=== PATIENT | male | born 1955 | race Caucasian/White ===

== ENCOUNTER 2020-04-18 13:37 | Emergency (ER) | payer MEDICARE, OTHER, SELFPAY ==
--- NOTE | ~2020-04-18 | CT_ITS ---
EXAMINATION: CT brain wo con INDICATION: Head injury COMPARISON: None TECHNIQUE: Standard unenhanced head CT. The dose-length product (DLP) was 605.33 mGy-cm. The mA was a djusted according to patient size. Iterative reconstruction technique was employed. FINDINGS: There is no acute intraparenchymal hemorrhage. No evidence of mass lesion. No evidence of a cute infarction. There is mild periventricular and subcortical hypodensity probably related to small vessel ischemic disease. There is mild prominence of the sulci and ventricles related to cerebral atr ophy. Intracranial calcified cerebral atherosclerosis is noted. There are no extra-axial collections. There is no mass effect or midline shift. The orbits and soft tissues are unremarkable. The visuali zed sinuses and mastoid air cells are well aerated. IMPRESSION: 1. No acute intracranial abnormality. 2. Age related findings. Reviewed, dictated and finalized at location A.
--- NOTE | ~2020-04-18 | CT_ITS ---
EXAMINATION: CT cervical spine wo con DATE: 04/18/2020 18:34 INDICATION: Neck pain TECHNIQUE: Computed tomography (CT) of the cervical spine was performed without intravenous contrast. The dose-length product (DLP) was 448.05 mGy-cm. Automated exposure control and iterative reconstruc tion technique were employed. COMPARISON: None FINDINGS: There is no fracture. There is 1 mm retrolisthesis of C5 on C6. The vertebral body heights are normal. There is mild loss of intervertebral disc space height at C5-6. The odontoid is intact. S mall degenerative osteophytes project from the anterior endplates of multiple vertebral bodies. There is mild facet and uncovertebral joint osteoarthritis at multiple levels in the cervical spine. IMPRESSION: 1. Mild cervical spondylosis without acute findings. Reviewed, dictated and finalized at location A.
--- NOTE | ~2020-04-18 | CT_ITS ---
EXAMINATION: CT abd pelvis lumbar w con INDICATION: Abdominal and pelvic pain after fall TECHNIQUE: Computed tomographic images of the abdomen, pelvis, and lumbar spine were obtained after t he administration of 100 cc of Omnipaque 350 intravenous contrast. The dose-length product (DLP) was 1589.79 mGy-cm. Automated exposure control and iterative reconstruction technique were employed. COMPARISON: None FINDINGS: ABDOMEN/PELVIS: Minimal dependent atelectasis is present in the lung bases. The heart size is normal. There is a trace right pleural effusion. Subtle low attenuation of the liver adjacent to the ligamen tyler teres likely reflects focal steatosis, a common location. The liver is otherwise unremarkable. Th e spleen, pancreas, gallbladder, and adrenal glands are normal. The kidneys are unremarkable. There i s slight enlargement of the right iliopsoas muscle compared to the left. A moderate amount of right-s ided retroperitoneal fluid is also seen adjacent to the right iliopsoas muscle. Fluid also tracks int o a small right inguinal hernia and into the pelvis. There is calcified atherosclerosis of the aorta and many of the other arteries. No pathologically enlarged abdominal or pelvic lymph nodes are identi fied. There is no free intraperitoneal gas or evidence of bowel obstruction. Colonic diverticulosis i s present without evidence of diverticulitis. A nondisplaced right 12th rib fracture is noted. LUMBAR SPINE: There is no fracture, dislocation, or subluxation. Vertebral body heights and alignment are normal. There is mild loss of intervertebral disc space height at L5-S1 with a mild posterior di sc bulge. Tiny sclerotic foci in the sacrum likely represent bone islands. There is mild facet osteoa rthritis of the lower lumbar spine. Small degenerative osteophytes project from the anterior endplate s of multiple vertebral bodies. IMPRESSION: 1. Mild asymmetric enlargement of the right iliopsoas muscle compared to the left with surrounding st randing of the retroperitoneal fat, consistent with muscular injury. 2. Mild lumbar spondylosis without acute findings of the lumbar spine. 3. Trace right pleural effusion. 4. Nondisplaced right 12th rib fracture. Reviewed, dictated and finalized at location A. IMPRESSION: 1. Mild asymmetric enlargement of the right iliopsoas muscle compared to the le ft with surrounding stranding of the retroperitoneal fat, consistent with muscu lar injury. 2. Mild lumbar spondylosis without acute findings of the lumbar spine. 3. Trace right pleural effusion. 4. Nondisplaced right 12th rib fracture.
[2020-04-18 13:55] VITALS: BP 113/54; PULSE 91; RESP 16; TEMP 36.3; O2SAT 98
[2020-04-18 14:17] LABS: Basophils Percent Auto 0.2 % (0.2-1.2); Eosinophils Percent Auto 0.2 % (0-4.4); Hematocrit 40.7 % (42.0-52.0); Immature Granulocyte Absolute 0.08 K/mm3 (0.00-0.031); Immature Granulocyte Percent A 0.6 % (0-0.5); Lymphocytes Absolute Auto 1.02 K/mm3 (0.9-3.2); Mean Corpuscular HGB Conc 34.4 g/dl (32-36); Mean Corpuscular Hemoglobin 32.9 pg (26-34); Mean Corpuscular Volume 95.5 fl (80-100); Mean Platelet Volume 10.4 fl (7.4-10.4); Monocytes Absolute Auto 1.4 K/mm3 (0.1-0.6); Monocytes Percent Auto 11.3 % (2.6-8.5); Neutrophils Absolute Auto 10.2 K/mm3 (1.3-6.7); Neutrophils Percent Auto 79.7 % (45.5-73.1); Platelet Count Result 251 k/mm3 (150-375); Red Blood Count 4.26 M/mm3 (4.6-6.20); Red Cell Distribution Width 13.3 % (11.5-14.5); White Blood Count 12.8 K/mm3 (4.5-10.0)
[2020-04-18 14:34] LABS: Alanine Aminotransferase 15 U/L (4-50); Albumin Level 4.1 g/dL (3.5-5.1); Alkaline Phosphatase 62 U/L (38-126); Aspartate Amino Transferase 17 U/L (17-59); Bilirubin,Total 0.9 mg/dL (0.2-1.3); Blood Urea Nitrogen 18 mg/dL (9-20); Calcium 9.1 mg/dL (8.4-10.2); Carbon Dioxide 23 mmol/L (22-30); Chloride 101 mmol/L (98-107); Estimated CRCL calculation 79 ml/min; Estimated Glomerular Filt Rate > 60; Glucose 260 mg/dL (75-110); Lipase 81 U/L (23-300); Sodium 134 mmol/L (137-145)
--- NOTE | 2020-04-18 16:55 | ED.BACK ---
HPI - Back Pain/Injury General Chief Complaint: Back Pain/Injury Stated Complaint: FALL Time Seen by Provider: 04/18/20 16:39 Source: patient Mode of arrival: ambulatory Limitations: no limitations History of Present Illness HPI Narrative: This patient is a 64 year old male with multiple medical problems which includes DVTs on xarelto who presents for evaluation of fall out of bed. He states on Saturday he must have rolled out of bed. He woke up on floor with redness and sores to his face. He reports there were teeth alcantara on the night stand. He has had progressively worsening pain from his neck down to his lower back . He also had abdominal pain and distension. He has been taking tramadol for pain his pain. Related Data Allergies Allergy/AdvReac Type Severity Reaction Status Date / Time Penicillins Allergy Unknown Verified 09/09/19 15:35 Review of Systems Review of Systems: All systems reviewed & are unremarkable except as noted in HPI and below Constitutional: Constitutional: Denies chills and Denies fever(s) Gastrointestinal: Gastrointestinal: Reports abdominal pain and Reports nausea Genitourinary: Genitourinary: Reports no additional male genitourinary complaints Musculoskeletal: Musculoskeletal: Reports back pain and Reports myalgias Neurologic: Reports headache(s) PMFSH Past Medical History Medical History (Updated 04/18/20 @ 19:47 by Cheryl Dent MD) Diabetes mellitus Rheumatoid arthritis Surgical History Surgical History (Updated 04/18/20 @ 19:43 by Cheryl Dent MD) No pertinent past surgical history Social History Social History (Updated 04/18/20 @ 19:43 by Cheryl Dent MD) Smoking status: Never smoker Gender identity (if verbalized by the patient): Male Exam Narrative: Exam Narrative: GENERAL: Well-appearing, well-nourished, HEAD: Normocephalic, atraumatic EYES: PERRLA and EOMI, conjunctiva clear without discharge EARS: TM's clear bilaterally without erythema or dullness NOSE: Nares clear, no rhinorrhea or epistaxis abrasion to nasal bridge THROAT:Mucous membranes moist, Oropharynx normal without erythema, exudate, peritonsillar swelling or fluctuance NECK: Supple, without lymphadenopathy or mass RESPIRATORY: No respiratory distress, Airway patent, Respirations non-labored, Clear to auscultation without rales, rhonchi or wheeze HEART: Regular rate and rhythm. No murmur heard. Normal peripheral pulses. ABDOMEN: Soft, Diffuse tenderness, nondistended, normal active bowel sounds. No masses. No rebound or guarding, No organomegaly. EXTREMITIES: No edema, normal strength with full range of motion. abrasion to right knee SKIN: Warm, dry, normal color without rash NEURO: Alert and oriented x3. CN 2-12 grossly intact. No focal deficits. PSYCH: Normal mood and affect. Back/Spine/Pelvis: Other: TTP L2 Course Reevaluation(s) Reevaluation #1: I discussed with patient and family CT findings of rib fracture and muscle tear. Radiologist did not see hyperdense fluid to suggest bleedinging. Date: 04/18/20 Time: 19:44 Vital Signs Vital signs: Vital Signs Temperature 97.4 F L 04/18/20 13:55 Pulse Rate 91 04/18/20 13:55 Respiratory Rate 16 04/18/20 13:55 Blood Pressure 113/54 L 04/18/20 13:55 Pulse Oximetry 98 04/18/20 13:55 Temperature 97.4 F L 04/18/20 13:55 Pulse Rate 92 04/18/20 18:41 Respiratory Rate 20 04/18/20 18:41 Blood Pressure 116/60 04/18/20 18:41 Pulse Oximetry 96 04/18/20 17:18 MDM - Back Pain/Injury Lab Data Attestation: I reviewed the patient's lab results. Result diagrams: 04/18/20 14:08 04/18/20 14:08 Labs: Lab Results 04/18/20 04/18/20 04/18/20 Range/Units 14:08 14:08 17:24 WBC 12.8 H (4.5-10.0) K/mm3 RBC 4.26 L (4.6-6.20) M/mm3 Hgb 14.0 (14.0-18.0) g/dL Hct 40.7 L (42.0-52.0) % MCV 95.5 (80-100) fl MCH 32.9 (26-34) pg MCHC 34
[2020-04-18] MEDS: ONDANSETRON INJ 4 MG/2 ML VIAL IV PUSH (17:16)
[2020-04-18 17:18] VITALS: BP 116/57; PULSE 83; RESP 17; O2SAT 96
[2020-04-18 17:39] LABS: INR 1.7; Prothrombin Time 19.8 Seconds (11.1-14.7)
[2020-04-18 17:40] LABS: Partial Thromboplastin Time 38.1 SECONDS (22.3-36.8)
[2020-04-18 18:40] VITALS: BP 101/57; PULSE 78; RESP 20
[2020-04-18 18:41] VITALS: BP 116/60; PULSE 92; RESP 20
--- NOTE | 2020-04-18 21:10 | PC.NURSE ---
2104- This RN into discharge the patient. Multiple attempts at bp showed systolic pressure in the 80's. Pt denies any symptoms. CHRISTIANE Peguero notified, fluids ordered
[2020-04-18] MEDS: SODIUM CHLORIDE 0.9% IV 1,000 ML 999 ML IV CONT (21:12)
[2020-04-18 21:14] VITALS: BP 111/64; PULSE 78; RESP 18; O2SAT 99
--- NOTE | 2020-04-27 10:53 | PC.NURSE ---
late entry- patient recieved 200 cc ns and sbp improved to 111. iv fluids dcd and patient discharged to home at 2113
[2020-04-27 10:55] VITALS: BP 111/60; PULSE 78; RESP 18; O2SAT 99
== END 2020-04-18 21:14 | disposition home or self-care (01) ==
PROVIDERS: Emergency Medicine; Emergency Provider General Practice; PCP Physician Assistant
DX: S22.31XA Fracture of one rib, right side, initial encounter for closed fracture (principal); S76.911A Strain of unspecified muscles, fascia and tendons at thigh level, right thigh, initial encounter; Z86.718 Personal history of other venous thrombosis and embolism; Z79.01 Long term (current) use of anticoagulants; E11.9 Type 2 diabetes mellitus without complications; M06.9 Rheumatoid arthritis, unspecified; M47.812 Spondylosis without myelopathy or radiculopathy, cervical region; M47.816 Spondylosis without myelopathy or radiculopathy, lumbar region; W06.XXXA Fall from bed, initial encounter
CPT/HCPCS: 36415; 70450; 72125; 72132; 74177; 80053; 83690; 85025; 85610; 85730; 96365; 96375; 99284; J0131; J1170; J2405; J7030; Q9967

== ENCOUNTER 2020-12-22 17:44 | Observation (INO) | payer MEDICARE, SELFPAY ==
[2020-12-22] VITALS (12 sets, daily range): BP systolic 103–148; BP diastolic 52–82; PULSE 65–95; RESP 16–24; TEMP 35.6–36.6; O2SAT 95–100; BMI 25.8
--- NOTE | ~2020-12-22 | XR_ITS ---
EXAMINATION: XR foot LT 2V INDICATION: Left foot strain, fifth metatarsal pain/wound TECHNIQUE: Two views of left foot are obtained. COMPARISON: None available FINDINGS: There is a well-corticated osseous fragment at the lateral base of the fifth metatarsal whi ch has the appearance of a prior fracture with nonunion. Soft tissue swelling is seen lateral to the base and proximal shaft of the fifth metatarsal. No acute fracture is identified. There is mild osteo arthritis of the ankle, midfoot, and several interphalangeal joints. Dorsal and plantar calcaneal ent hesophytes are noted. IMPRESSION: 1. Soft tissue swelling lateral to the base and proximal shaft of the fifth metatarsal without eviden ce of acute underlying osseous abnormality. 2. 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 Reviewed, dictated and finalized at location A. NOPATHOLOGIST IMPRESSION: 1. Soft tissue swelling lateral to the base and proximal shaft of the fifth met atarsal without evidence of acute underlying osseous abnormality. 2. 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
--- NOTE | ~2020-12-22 | XR_ITS ---
EXAMINATION: XR chest 1V portable INDICATION: History of hypertension and anemia TECHNIQUE: Portable AP chest at 2052 hours COMPARISON: 02/14/2018 FINDINGS: The lungs are free of acute opacities. There is no pleural effusion or pneumothorax. The ca rdiomediastinal silhouette is normal. A suture anchor is noted in the left humeral head. IMPRESSION: 1. No acute cardiopulmonary abnormality. Reviewed, dictated and finalized at location A. [employer]TER GAME TESTER
--- NOTE | 2020-12-22 18:10 | ED.GENADULT ---
HPI - General Adult General Chief complaint: Recheck/Abnormal Lab/Rx Stated complaint: abn lab Time Seen by Provider: 12/22/20 17:58 Source: patient Mode of arrival: ambulatory Limitations: no limitations History of Present Illness HPI narrative: Patient is a 65-year-old male sent here by his primary care physician due to low hemoglobin. Patient was told by his doctor that he has severe anemia and needs to go to the emergency room soon as possible. Patient states that he has noticed shortness of breath on exertion that started proxy 1 month ago. Patient denies any hemoptysis, hematemesis, melena, hematochezia. Patient denies any chest pain, abdominal pain, nausea, vomiting, fever or chills. Related Data Home Medications Medication Instructions Recorded Confirmed Antacid 12/22/20 12/22/20 Caltrate 600 plus D 12/22/20 apremilast [Otezla] mg PO 12/22/20 duloxetine mg PO 12/22/20 duloxetine mg PO 12/22/20 enalapril maleate 12/22/20 furosemide 12/22/20 12/22/20 glipizide mg 12/22/20 leflunomide mg 12/22/20 metformin mg 12/22/20 secukinumab [Cosentyx Pen (2 Pens)] mg SUBCUT 12/22/20 senna 12/22/20 sitagliptin 12/22/20 tramadol mg 12/22/20 Allergies Allergy/AdvReac Type Severity Reaction Status Date / Time Penicillins Allergy Unknown Verified 12/22/20 18:50 Review of Systems Review of Systems: All systems reviewed & are unremarkable except as noted in HPI and below Constitutional: Constitutional: Denies body ache(s), Denies chills, Denies excessive sweating, Denies fatigue, Denies fever(s), Denies headache(s), Denies lethargy, Denies malaise, Denies weakness and Denies weight loss Eyes: Eyes: Denies blurry vision, Denies change in vision and Denies loss of vision ENT: Denies dizziness, Denies ear discharge, Denies headache(s), Denies lip swelling, Denies epistaxis, Denies nasal congestion, Denies neck pain, Denies throat swelling and Denies tongue swelling Cardiovascular: Cardiovascular: Denies chest pain, Denies chest pain at rest, Denies chest pain with activity, Denies diaphoresis, Denies rapid heart rate, Denies edema, Denies irregular heart rhythm, Denies lightheadedness, Denies palpitations, Denies dyspnea and Denies dyspnea on exertion Respiratory: Respiratory: Denies chest congestion, Denies cough, Denies hemoptysis, Denies dyspnea and Denies dyspnea on exertion Gastrointestinal: Gastrointestinal: Denies abdominal pain, Denies melena, Denies hematochezia, Denies diarrhea, Denies nausea, Denies vomiting and Denies hematemesis Musculoskeletal: Musculoskeletal: Denies abnormal gait, Denies deformity, Denies joint swelling, Denies limited range of motion, Denies neck pain and Denies numbness Neurologic: Denies Abnormal speech present, Denies abnormal gait, Denies confusion, Denies dizziness, Denies headache(s), Denies focal weakness, Denies loss of vision, Denies numbness, Denies Other visual disturbances, Denies Sensory deficit (Neuro) and Denies weakness Psychiatric: Psychiatric: Denies confusion, Denies depression, Denies auditory hallucinations, Denies homicidal ideation and Denies suicidal ideation Endocrine: Endocrine: Denies cold intolerance, Denies excessive sweating, Denies fatigue, Denies heat intolerance and Denies palpitations Hematologic/Lymphatic: Hematologic/Lymphatic: Denies easy bleeding and Denies easy bruising Allergic/Immunologic: Allergic/Immunologic: Denies lip swelling, Denies throat swelling and Denies tongue swelling PMFSH Past Medical History Medical History Diabetes mellitus Rheumatoid arthritis Surgical History Surgical History No pertinent past surgical history Social History Social History Smoking status: Never smoker Gender identity (if verbalized by the patient): Male Exam Const: Genera
[2020-12-22 19:09] LABS: Basophils Percent Auto 0.3 % (0.2-1.2); Eosinophils Absolute Auto 0.1 K/mm3 (0-0.3); Eosinophils Percent Auto 0.5 % (0-4.4); Hematocrit 22.8 % (42.0-52.0); Hemoglobin 7.4 g/dL (14.0-18.0); Immature Granulocyte Absolute 0.03 K/mm3 (0.00-0.031); Immature Granulocyte Percent A 0.3 % (0-0.5); Lymphocytes Absolute Auto 1.93 K/mm3 (0.9-3.2); Lymphocytes Percent Auto 21.2 % (18.3-44.2); Mean Corpuscular HGB Conc 32.5 g/dl (32-36); Mean Corpuscular Hemoglobin 30.2 pg (26-34); Mean Corpuscular Volume 93.1 fl (80-100); Mean Platelet Volume 9.3 fl (7.4-10.4); Monocytes Absolute Auto 0.8 K/mm3 (0.1-0.6); Monocytes Percent Auto 8.9 % (2.6-8.5); Neutrophils Absolute Auto 6.3 K/mm3 (1.3-6.7); Neutrophils Percent Auto 68.8 % (45.5-73.1); Platelet Count Result 331 k/mm3 (150-375); Red Blood Count 2.45 M/mm3 (4.6-6.20); White Blood Count 9.1 K/mm3 (4.5-10.0)
--- NOTE | 2020-12-22 19:18 | PC.NURSE ---
Report to MANUEL Posey, to continue care.
[2020-12-22 19:21] LABS: Alanine Aminotransferase 16 U/L (4-50); Albumin Level 3.5 g/dL (3.5-5.1); Alkaline Phosphatase 61 U/L (38-126); Anion Gap 4 mmol/L (8-16); Aspartate Amino Transferase 21 U/L (17-59); Bilirubin,Total 0.4 mg/dL (0.2-1.3); Blood Urea Nitrogen 18 mg/dL (9-20); Calcium 8.7 mg/dL (8.4-10.2); Carbon Dioxide 29 mmol/L (22-30); Chloride 104 mmol/L (98-107); Estimated CRCL calculation 59 ml/min; Estimated Glomerular Filt Rate > 60; Glucose 227 mg/dL (75-110); Potassium 3.9 mmol/L (3.4-5.0); Sodium 137 mmol/L (137-145)
[2020-12-22 19:33] LABS: Partial Thromboplastin Time 34.4 SECONDS (22.3-36.8)
[2020-12-22 19:38] LABS: INR 1.8; Prothrombin Time 21.4 Seconds (11.1-14.7)
[2020-12-22] MEDS: SODIUM CHLORIDE 0.9% IV 250 ML 30 ML IV CONT (22:07)
[2020-12-22 22:41] LABS: Iron 35 ug/dL (49-181)
[2020-12-22 22:51] LABS: Percent Iron Saturation 12 % (20-50)
--- NOTE | 2020-12-22 22:52 | PC.NURSE ---
This patient, Sheldon Burrows, was admitted to Medical Room 252-. Patient/family oriented to hospital policies and general routines including ID bracelet, bed and alarms, visiting hours, pain management, procedures, bathroom and other care routines, personal items, smoking policy, room service/diet, and visiting hours. Information on how to activate the Rapid Response Team has been discussed. Patient/Family are encouraged to report perceived risks to care and to ask questions if they do not understand what they are told or what they should do.
--- NOTE | 2020-12-22 22:55 | PM.IMHP ---
H&P: HPI History of Present Illness Date/Time: 12/22/20 22:55 Chief Complaint: Anemia. Narrative: This is a 65-year-old male with rheumatoid arthritis, psoriatic arthritis, hypertension, and type 2 diabetes mellitus who presented to the emergency department today at the direction of his geotechnical laboratory technician for further evaluation and treatment of ?anemia.? He had routine labs done at his geotechnical laboratory technician's office yesterday and received a call today that he was ?severely anemic? a need to come to the emergency department. Hemoglobin and hematocrit today were 7.4 in 22.8% respectively and it is noted that both of these were well within normal limits in March 2020. He has had some symptoms of anemia including feeling cold a majority of the time, lightheadedness occasionally on standing, and shortness of breath with exertion. He has not noticed any blood in the stool however did have a dark stool couple of weeks ago after taking Pepto-Bismol due to an increase in heartburn. Since that time he has been taking Prevacid [id number] and he has not had any issues with regards to the indigestion. He has not been started on any new medications for his rheumatoid and psoriatic arthritis, reporting that he has been on Otezla, leflunomide, and Cosentyx for quite some time. Also of note, he has lost 42 pounds in the last 4-1/2 months but tells me that he has been actively trying to lose weight. Last colonoscopy was at age 49 and was done not long after his brother was diagnosed with colon cancer. Review of Systems Review of Systems: Narrative: Twelve systems were reviewed with pertinent positives and negatives as per HPI. No fever, chills, or sweats. He denies recent cold and flu symptoms. No chest pain or pleuritic pain. He has chronic, mild left leg edema from a previous DVT in August 2019 for which he is still on Xarelto. Denies NSAID use. Sugars have been running a bit high recently. No blurry vision, polydipsia, or polyuria. Except as documented, all other systems were reviewed and are negative. [facility] Past Medical History Medical History (Updated 12/22/20 @ 23:42 by Evy Rose PA-C) Current use of [employer] anticoagulation Deep vein thrombosis of left femoral vein (~08/2019) Hypertension Psoriatic arthritis Rheumatoid arthritis Type 2 diabetes mellitus Surgical History Surgical History (Updated 12/22/20 @ 23:39 by Evy Rose PA-C) History of right knee surgery History of shoulder surgery No pertinent past surgical history Family History Family History (Updated 12/22/20 @ 23:39 by Evy Rose PA-C) Mother Lung cancer Father Hodgkin lymphoma Sibling Colon cancer Social History Social History (Updated 12/22/20 @ 23:40 by Evy Rose PA-C) Social History: Surrogate decision maker: Mona Burrows, . Code status: Full code. Smoking status: Never smoker Alcohol intake: never Substance use: never Additional living arrangements comments: Lives in [place] with his . 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 Gender identity (if verbalized by the patient): Male Spiritual care concerns: No Meds Home Medications and Allergies Home Medications Medication Instructions Recorded Confirmed Type hydrocodone-acetaminophen 1 tablet PO Q6H PRN #14 tablet 04/18/20 12/22/20 Rx Caltrate 600 plus D 1,500 mg PO DAILY 12/22/20 12/22/20 History apremilast [Otezla] 30 mg PO BID 12/22/20 12/22/20 History duloxetine 30 mg PO DAILY 12/22/20 12/22/20 History duloxetine 60 mg PO DAILY 12/22/20 12/22/20 History enalapril maleate 20 mg PO DAILY 12/22/20 12/22/20 History furosemide 20 mg PO DAILY 12/22/20 12/22/20 History glipizide 10 mg PO BID 12/22/20 12/22/20 History leflunomide 20 mg PO DAILY 12/22/20 12/22/20 History metformin 1,000 mg PO BID 12/22/20 12/22/20 History rivaroxaban [Xarelto] 15 ea PO DAILY 12/22/20 12/22/20 History secukinumab [Cosentyx Pe
[2020-12-22 23:12] LABS: Folic Acid > 20.0 ng/mL (2.76->20)
[2020-12-23] VITALS (10 sets, daily range): BP systolic 129–155; BP diastolic 57–71; PULSE 75–89; RESP 16–21; TEMP 36.2–37.1; O2SAT 97–100; BMI 25.8
[2020-12-23 05:31] LABS: Hematocrit 24.3 % (42.0-52.0); Mean Corpuscular HGB Conc 32.9 g/dl (32-36); Mean Corpuscular Hemoglobin 30.7 pg (26-34); Mean Corpuscular Volume 93.1 fl (80-100); Mean Platelet Volume 8.9 fl (7.4-10.4); Platelet Count Result 279 k/mm3 (150-375); Red Blood Count 2.61 M/mm3 (4.6-6.20); Red Cell Distribution Width 15.4 % (11.5-14.5); White Blood Count 6.5 K/mm3 (4.5-10.0)
[2020-12-23 05:53] LABS: Anion Gap 2 mmol/L (8-16); Blood Urea Nitrogen 19 mg/dL (9-20); Calcium 8.7 mg/dL (8.4-10.2); Carbon Dioxide 30 mmol/L (22-30); Chloride 108 mmol/L (98-107); Estimated CRCL calculation 55 ml/min; Estimated Glomerular Filt Rate 55; Glucose 84 mg/dL (75-110); Hemoglobin A1C 5.5 % (<5.7); Potassium 3.7 mmol/L (3.4-5.0); Sodium 140 mmol/L (137-145)
[2020-12-23] MEDS: metFORMIN HCL 500 MG TABLET 1000 MG PO ×2 (08:13→16:35)
[2020-12-23] MEDS: glipiZIDE 5 MG TABLET 10 MG PO ×2 (08:13→16:35)
[2020-12-23] MEDS: SENNOSIDES 8.6 MG TABLET PO (08:14)
[2020-12-23] MEDS: FUROSEMIDE 20 MG TABLET PO (08:14)
[2020-12-23] MEDS: DULoxetine HCL 30 MG CAPSULE.DR PO (08:14)
[2020-12-23] MEDS: DULoxetine HCL 60 MG CAPSULE.DR PO (08:14)
[2020-12-23] MEDS: ENALAPRIL MALEATE 10 MG TABLET 20 MG PO (08:14)
[2020-12-23 09:20] LABS: Glucose Point of Care 109 (65-105)
--- NOTE | 2020-12-23 11:46 | PCNSR ---
On 12/23/20, the student,Jacklyn Lamb, provided care and completed [facility] documentation on this patient. I have reviewed the student's documentation and agree with the findings.
[2020-12-23 12:25] LABS: Glucose Point of Care 98 (65-105)
[2020-12-23 13:11] LABS: IFOB Positive Control Positive; Immunochemical Fecal Occult Bl Negative (N)
[2020-12-23 14:08] LABS: Hematocrit 23.7 % (42.0-52.0); Hemoglobin 7.7 g/dL (14.0-18.0)
--- NOTE | 2020-12-23 16:43 | PM.IMPN ---
Progress Note: A&P Assessment and Plan (1) Normocytic anemia: Code(s): D64.9 - Anemia, unspecified Status: Acute Assessment and Plan: He received 1 unit PRBC. H&H improved following transfusion but still rather low. No evidence of bleeding. Vital signs are stable. Fecal occult blood test was negative And GI loss seems less likely. Iron stores are deficient. B12 and folate within normal limits. This may be related to medication use including his leflunomide. trend H&H q6h transfuse as needed with hemoglobin threshold <7.0 continue to hold Xarelto Plan for oral iron supplementation as an outpatient (2) Type 2 diabetes mellitus: Code(s): E11.9 - Type 2 diabetes mellitus without complications Status: Inactive Assessment and Plan: Blood sugars reviewed and are well controlled. A1c is 5.5. Continue Accu-Cheks, sliding scale insulin, and hypoglycemic protocol Continue glipizide and metformin. (3) Hypertension: Code(s): I10 - Essential (primary) hypertension Status: Acute Assessment and Plan: BP reviewed and has been fairly well controlled. Last BP 131/69. Continue antihypertensive regimen. Monitor BP daily (4) Psoriatic arthritis: Code(s): L40.50 - Arthropathic psoriasis, unspecified Status: Inactive Assessment and Plan: he is established with rheumatology. Leflunomide on hold to ensure this is not contributing to anemia. His home Otezla is non formulary. This can be resumed if brought from home. (5) Rheumatoid arthritis: Code(s): M06.9 - Rheumatoid arthritis, unspecified Status: Acute Assessment and Plan: As above (6) Current use of [facility] anticoagulation: Code(s): Z79.01 - [facility] (current) use of anticoagulants Status: Acute Assessment and Plan: he is on Xarelto for DVT of the left femoral vein onset in August 2019. Xarelto being held in setting of anemia. Resume when clinically appropriate. (7) Wound of left foot: Code(s): S91.302A - Unspecified open wound, left foot, initial encounter Status: Acute Assessment and Plan: Left lateral mid foot has approximately 3 cm crusted, dry wound with no purulence or drainage. Appears to have some centralized necrotic tissue. Surrounding skin is erythematous without warmth or tenderness. Do not suspect acute infection at this time. He is afebrile and without leukocytosis. He reports wound has been present for several weeks. He has 1+ DP pulses. Obtain x-ray of left foot Obtain blood cultures Do not feel that antibiotics are warranted at this time but will monitor closely. Check CRP Elevate extremity Will place consult to general surgery for consideration of debridement Subjective Date/time seen: 12/23/20 16:43 Interval history: Date of service: 12/23/2020 Sheldon Burrows is a 65-year-old male with a history of rheumatoid arthritis, psoriatic arthritis, type 2 diabetes mellitus, hypertension, and DVT of left lower extremity who is seen in follow-up for anemia. He is feeling fairly well today. He is still a bit fatigued. He denies shortness of breath, dizziness, or lightheadedness. His appetite has been good. Denies nausea, vomiting, fever, chills. No shortness of breath or chest pain. He does complain of a wound on his left ankle, though he notes this is not bothersome and has been present for some time. He denies any episodes of bleeding or bruising. He has no additional concerns. Review of Systems Review of Systems: All systems reviewed & are unremarkable except as noted in HPI and below Exam Narrative: Exam Narrative: Mr. Burrows is a well-nourished, well-appearing 65-year-old male who is lying supine in bed. he appears comfortable and is in NARD. HR 86, BP 152/71, R 20, T 98.1?, 99% on room air Neuro: awake, alert and oriented x4, speech cl
[2020-12-23 16:54] LABS: Glucose Point of Care 116 (65-105)
[2020-12-23 17:49] LABS: Hematocrit 26.4 % (42.0-52.0); Hemoglobin 8.4 g/dL (14.0-18.0)
[2020-12-23 22:05] LABS: Glucose Point of Care 127 (65-105)
[2020-12-24 05:35] VITALS: BP 160/71; PULSE 80; RESP 18; TEMP 36.3; O2SAT 99
[2020-12-24 05:56] LABS: Hematocrit 25.4 % (42.0-52.0); Hemoglobin 8.2 g/dL (14.0-18.0); Mean Corpuscular HGB Conc 32.3 g/dl (32-36); Mean Corpuscular Hemoglobin 30.4 pg (26-34); Mean Corpuscular Volume 94.1 fl (80-100); Platelet Count Result 286 k/mm3 (150-375); Red Cell Distribution Width 15.7 % (11.5-14.5); White Blood Count 6.8 K/mm3 (4.5-10.0)
[2020-12-24 06:13] LABS: Anion Gap 1 mmol/L (8-16); Blood Urea Nitrogen 14 mg/dL (9-20); CRP 1.3 mg/dL (<1.0); Calcium 8.5 mg/dL (8.4-10.2); Carbon Dioxide 34 mmol/L (22-30); Chloride 108 mmol/L (98-107); Estimated CRCL calculation 70 ml/min; Estimated Glomerular Filt Rate > 60; Glucose 87 mg/dL (75-110); Potassium 3.7 mmol/L (3.4-5.0); Sodium 143 mmol/L (137-145)
[2020-12-24 07:16] LABS: Glucose Point of Care 107 (65-105)
[2020-12-24] MEDS: metFORMIN HCL 500 MG TABLET 1000 MG PO (08:26)
[2020-12-24] MEDS: DULoxetine HCL 30 MG CAPSULE.DR PO (08:26)
[2020-12-24] MEDS: glipiZIDE 5 MG TABLET 10 MG PO (08:26)
[2020-12-24] MEDS: SENNOSIDES 8.6 MG TABLET PO (08:26)
[2020-12-24] MEDS: ENALAPRIL MALEATE 10 MG TABLET 20 MG PO (08:26)
[2020-12-24] MEDS: FUROSEMIDE 20 MG TABLET PO (08:26)
[2020-12-24] MEDS: DULoxetine HCL 60 MG CAPSULE.DR PO (08:26)
--- NOTE | 2020-12-24 11:06 | PM.CNGS ---
Assessment and Plan Assessment and plan (1) Wound of left foot: Code(s): S91.302A - Unspecified open wound, left foot, initial encounter Status: Acute Assessment and Plan: Patient has a superficial ulcer on the lateral aspect of his left foot. This appears dry and non infected. I reviewed the foot x-ray and there does not appear to be any deep bony involvement. Since this does not appear to be open or infected, patient may apply Betadine paint to wound daily to help keep it clean and sterile. Mepilex border may help with cushioning to prevent any further irritation or friction. I discussed avoiding tight-fitting shoes until wound has healed. Also recommended elevating foot while not ambulating. I will arrange a follow-up visit with our wound clinic to continue managing this wound until it has healed. Further recommendations may include walking boot to prevent further irritation with shoes. Also could superficially d?bride area if needed. Patient is okay to discharge from surgical standpoint. Follow-up and [facility]. (2) Metatarsal bone fracture: Qualifiers: Encounter type: initial encounter Metatarsal bone: fifth Fracture type: closed Fracture alignment: nondisplaced Laterality: left Qualified Code(s): S92.355A - Nondisplaced fracture of fifth metatarsal bone, left foot, initial encounter for closed fracture Code(s): S92.309A - Fracture of unspecified metatarsal bone(s), unspecified foot, initial encounter for closed fracture Status: Acute Assessment and Plan: Could consider podiatry evaluation if he is continuing to have pain in this area (3) Type 2 diabetes mellitus: Qualifiers: Diabetes mellitus mcc insulin use: without mcc use Diabetes mellitus complication status: without complication Qualified Code(s): E11.9 - Type 2 diabetes mellitus without complications Code(s): E11.9 - Type 2 diabetes mellitus without complications Status: Acute Assessment and Plan: Well controlled with current A1c 5.5% (4) Current use of lobsterman anticoagulation: Code(s): Z79.01 - continuous churn buttermaker (current) use of anticoagulants Status: Acute (5) Symptomatic anemia: Code(s): D64.9 - Anemia, unspecified Status: Acute (6) Hypertension: Qualifiers: Hypertension type: essential hypertension Qualified Code(s): I10 - Essential (primary) hypertension Code(s): I10 - Essential (primary) hypertension Status: Acute History of Present Illness Consult details Consult date: 12/24/20 Reason for consult: wound care Requesting physician: Amina Yin PA-C Narrative: This is a 65-year-old man who was hospitalized for anemia but was also noted to have a left foot wound. The patient states that this wound has been present for a couple weeks. He recently was taking out his trash barrels and stepped wrong and slightly rolled his ankle. He has had a swollen foot secondary to this and this was likely causing his shoes to be too tight and he subsequently developed a wound on the lateral aspect of his left foot. He is diabetic but this appears to be well controlled with oral medications. His hemoglobin A1c during this hospital stay was 5.5%. He denies any prior history of diabetic foot ulcers. He denies any history of peripheral vascular disease. Review of Systems Review of Systems: All systems reviewed & are unremarkable except as noted in HPI and below Eyes: Eyes: Denies change in vision ENT: Denies hearing loss, Denies neck pain and Denies sore throat Cardiovascular: Cardiovascular: Denies chest pain and Denies dyspnea Respiratory: Respiratory: Denies cough, Denies dyspnea and Denies wheezing Gastrointestinal: Gastrointestinal: Denies abdominal pain, Denies melena, Denies nausea and Denies vomiting Genitourinary: Genitourinary: Denies hematuria and Denies dysuria Musculoskeletal: Musculosk
[2020-12-24 11:43] LABS: Glucose Point of Care 157 (65-105)
--- NOTE | 2020-12-24 12:33 | PM.DS ---
DS: Admitting Diagnosis Admitting Diagnosis Admitting Diagnosis: Anemia DS: Discharge Diagnosis Discharge Diagnosis (1) Normocytic anemia: Code(s): D64.9 - Anemia, unspecified Status: Acute Assessment and Plan: H&H was 7.4 and 22.8% respectively upon presentation, a significant decline from previous labs in March 2020. He received 1 unit pRBC on 12/22/20. H&H improved following transfusion. He had no evidence of bleeding and vital signs were stable. Fecal occult blood test was negative and GI loss seems less likely. Iron stores are deficient. B12 and folate within normal limits. This may be related to medication use including his leflunomide. Xarelto initially held but was resumed as he was not felt to have blood loss. Oral iron supplementation initiated. Leflunomide held until follow up with insole and heel stiffener or PCP. Repeat H&H in 1 week. (2) Type 2 diabetes mellitus: Qualifiers: Diabetes mellitus prison insulin use: without airplane pilot supervisor use Diabetes mellitus complication status: without complication Qualified Code(s): E11.9 - Type 2 diabetes mellitus without complications Code(s): E11.9 - Type 2 diabetes mellitus without complications Status: Acute Assessment and Plan: Blood sugars reviewed and are well controlled. A1c is 5.5. (12/23/20). Blood sugars well controlled. Sliding scale insulin initiated during stay. Continue home glipizide and metformin. (3) Hypertension: Qualifiers: Hypertension type: essential hypertension Qualified Code(s): I10 - Essential (primary) hypertension Code(s): I10 - Essential (primary) hypertension Status: Acute Assessment and Plan: BP reviewed and was fairly well controlled on home anithypertensive regimen. (4) Psoriatic arthritis: Code(s): L40.50 - Arthropathic psoriasis, unspecified Status: Inactive Assessment and Plan: He is established with rheumatology. Leflunomide held to ensure this is not contributing to anemia. Hold until follow up with with insole and heel stiffener or PCP. His insole and heel stiffener is aware of his admission to hospital and he will have prompt follow up. Continue home otezla. 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 Xarelto initially held in setting of anemia but was resumed as no evidence of blood loss. (7) Wound of left foot: Code(s): S91.302A - Unspecified open wound, left foot, initial encounter Status: Acute Assessment and Plan: Left lateral mid foot has approximately 3 cm crusted, dry ulcer with no purulence or drainage.Surrounding skin is erythematous without warmth or tenderness. No evidence of acute infection at this time. He is afebrile and without leukocytosis. He reports wound has been present for several weeks. Foot x-ray showed soft tissue swelling without evidence of underlying osseous abnormality. CRP 1.3. Blood cultures collected with NGTD and final cultures will be monitored. Evaluated by general surgery and he will be referred to wound care as an outpatient. Apply betadine and mepilex border daily. Loose fitting shoes to avoid further irritation. Elevate extremity. (8) Metatarsal bone fracture: Qualifiers: Encounter type: initial encounter Metatarsal bone: fifth Fracture type: closed Fracture alignment: nondisplaced Laterality: left Qualified Code(s): S92.355A - Nondisplaced fracture of fifth metatarsal bone, left foot, initial encounter for closed fracture Code(s): S92.309A - Fracture of unspecified metatarsal bone(s), unspecified foot, initial encounter for closed fracture S
== END 2020-12-24 13:54 | disposition home or self-care (01) ==
LOC: ANHED 20:53 → ANH2MED 21:03
PROVIDERS: Physician Assistant; Admitting Provider Internal Medicine; Emergency Provider Emergency Medicine; PCP Internal Medicine; Visit Provider Internal Medicine
DX: D64.9 Anemia, unspecified (principal); S91.302A Unspecified open wound, left foot, initial encounter; S92.352K Displaced fracture of fifth metatarsal bone, left foot, subsequent encounter for fracture with nonunion; E11.9 Type 2 diabetes mellitus without complications; I10 Essential (primary) hypertension; L40.50 Arthropathic psoriasis, unspecified; M06.9 Rheumatoid arthritis, unspecified; R06.02 Shortness of breath; Z86.718 Personal history of other venous thrombosis and embolism; Z79.01 Long term (current) use of anticoagulants; Z79.84 Long term (current) use of oral hypoglycemic drugs
CPT/HCPCS: 36415; 36430; 71045; 73620; 80048; 80053; 82274; 82607; 82728; 82746; 82948; 83036; 83540; 83550; 85014; 85018; 85025; 85027; 85610; 85730; 86140; 86850; 86900; 86901; 86923; 87040; 99285; A9270; G0378; J7050; P9016

== ENCOUNTER 2021-01-03 11:32 | Outpatient (RCR) | payer MEDICARE, SELFPAY ==
--- NOTE | 2021-01-03 13:16 | WPDWOUNDNOTE ---
Wound Care Note Date/Time: 01/03/21 13:16 History: PMH: RA and Psoriatic arthritis on immunosuppressive therapy, Hx of DVT in 08/2019 on Xarelto (last taken this am), controlled DM type II, Hypertension Wound history: This is a 65 yo diabetic male with the above mentioned history, who was hospitalized for anemia on 12/23/20. At that time, he was also found to have a closed, callus left lateral foot wound that did not appear to be infected. No cellulitis or drainage from the wound at that time. He was evaluated by our service and given local wound care instructions with betadine swabs and Mepilex border to protect the wound from any further injury. The patient and his report doing the dressings as instructed. They were scheduled today for a f/u in the wound clinic for wound care. I was called by the wound clinic nurses in concern to changes of the wound. He reports that starting two days ago, he noticed swelling and slight redness of the left foot. He saw his Field Crop Farm Worker yesterday in [place], who did a bedside debridement and sent a script of oral doxycycline to the pharmacy x 10 days. The patient states he has not picked up the script or started that yet, but came in for his appointment today. He denies fever or chills. The patient is now seen in the wound clinic. Wound approximation: No Wound width: 1.5 cm Wound length: 1.5 cm Wound depth: 1.5 cm Drainage: cloudy, murky serous drainage Surrounding tissue appearance: Mild cellulitis just on the dorsal aspect of the forefoot with 1-2+ pitting edema of the left foot. Tunneling: at 6 o'clock 2.5 cm tunneling towards the plantar aspect of the foot Dressings: Apply dry gauze dressing to the open wound and change daily and as needed. We have ordered a post-op shoe that will be given to the patient prior to leaving to have him ambulate in this. Instructed him to wash over the wound with soap and water daily to keep it clean. Assessment and Plan Assessment and plan (1) Wound of left foot: Code(s): S91.302A - Unspecified open wound, left foot, initial encounter Status: Acute Assessment and Plan: Left foot ulcer with new changes and now appearing to have some localized infection. He had a wound debridement by his Field Crop Farm Worker yesterday and was prescribed oral antibiotics, which he never picked up from the pharmacy. There is no obvious indication for further debridement today, but he does need treatment for the wound infection. I discussed the patient's case and plan of care with Dr. Christy. I instructed the patient to go filler picker his doxycycline from the pharmacy and start this today. He should also call his Field Crop Farm Worker today to schedule his follow-up with him. I recommended he see him again later this week to re-evaluate the wound and monitor for worsening cellulitis. He should continue to be followed by Podiatry and further work-up will be deferred to their service. I also instructed him that if he has worsening redness/swelling or fevers over the next 48 hours of taking the oral antibiotics, then he should present to the ER. Patient verbalized understanding and all questions were answered. We will stop the Betadine swabs and switch him to dry gauze dressings to keep this clean and dry. Instructed to wash over this daily. Ordered a post-op shoe to be given to him prior to leaving, and he was instructed to use this for ambulation. (2) Type 2 diabetes mellitus: Qualifiers: Diabetes mellitus watermelon harvesting supervisor insulin use: without watermelon harvesting supervisor use Diabetes mellitus complication status: without complication Qualified Code(s): E11.9 - Type 2 diabetes mellitus without complications Code(s): E11.9 - Type 2 diabetes mellitus without complications Status: Acute (3) Current use of watermelon harvesting supervisor anticoagulation: Code(s): Z79.01 - termite exterminator helper (current) use of anticoagulants Status: Acute (4) Rheumatoid arthritis: Code(s): M06.9 - Rheumatoid arthritis, unspecified Status: Acute
[2021-01-03 13:32] VITALS: BMI 27.1
== END 2021-01-25 14:41 | disposition home or self-care (01) ==
LOC: ANHWOC 11:32
PROVIDERS: Visit Provider Surgery
DX: E11.621 Type 2 diabetes mellitus with foot ulcer (principal); L97.529 Non-pressure chronic ulcer of other part of left foot with unspecified severity
CPT/HCPCS: 99212; G0463

== ENCOUNTER 2021-01-04 22:02 | Inpatient (IN) | payer MEDICARE, SELFPAY ==
--- NOTE | ~2021-01-04 | XR_ITS ---
XR foot LT min 3V DATE: 01/04/2021 22:46 INDICATION: Foot ulcer. Wound at left fifth metatarsal area for 6 weeks TECHNIQUE: 4 views COMPARISON: 12/2020 left foot FINDINGS: There is soft tissue swelling of the dorsum of the foot and the ankle. Prominent plantar and posterior calcaneal enthesopathy. Osteoarthritis at the tibiotalar joint. Probable chronic ununited fracture of the lateral base of the fifth metatarsal bone. There may be very subtle elevated periosteum along the proximal lateral aspect of the fifth metatarsa l bone. There is overlying soft tissue swelling. Radiographic changes of osteomyelitis are not exclud ed. Consider three-phase radiographic bone scan for further evaluation. No fracture, dislocation, periosteal reaction or bone destruction is evident otherwise. IMPRESSION: 3 phase radionuclide bone scan for evaluation of possible early fifth metatarsal osteomye litis, suggested by subtle possible periosteal reaction along the proximal lateral aspect of the fift h metatarsal bone Reviewed, dictated and finalized at location A. IMPRESSION: 3 phase radionuclide bone scan for evaluation of possible early fif th metatarsal osteomyelitis, suggested by subtle possible periosteal reaction a long the proximal lateral aspect of the fifth metatarsal bone
--- NOTE | ~2021-01-04 | MR_ITS ---
EXAMINATION: MR foot LT wo/w con DATE: 01/06/2021 14:21 INDICATION: Cellulitis at the left foot. Assess for possible osteomyelitis. TECHNIQUE: Magnetic resonance imaging (MRI) of the left fore/mid foot was performed without intraveno us contrast. The patient was unable to complete the exam which was terminated prior to planned admini stration of intravenous contrast. Sequences included axial T1-weighted FSE, axial fluid sensitive FSE STIR, axial T1-weighted FS FSE, sagittal T1-weighted FSE and sagittal fluid sensitive FSE STIR. COMPARISON: Left foot radiographs dated 01/04/2021 FINDINGS: There is a skin ulceration plantar/lateral to the base of the fifth metatarsal. Chronic nonunited avu lsion fracture at the underlying lateral base of the fifth metatarsal. Is mild marrow edema within the proximal aspect of the fifth metatarsal as well as the nonunited ossi veronica as well as along the lateral margin of the cuboid and lateral margin of the anterior process of t he calcaneus, all without geographic loss of T1 marrow fat signal to more specifically suggest osteom yelitis. Small T2 hyperintense intraosseous cyst with low signal intensity peripheral sclerotic mile n at the base of the fifth metatarsal along the nonunited fracture plane. No evident sinus tract exte nding deep from the ulceration to the bone or discrete abscess. Additional mild likely osteoarthritis related subarticular edema along both sides of the medial navicular cuneiform articulation. Mild bret yarticular osteoarthritis involving multiple tarsal metatarsal and first metatarsophalangeal and mult iple interphalangeal joints. No joint effusions. Nonspecific diffuse edema throughout the subcutaneou s fat and intrinsic musculature of the visualized forefoot. Prominent focus of metallic magnetic fiel d artifact centered between the base of the fourth and fifth toes were there is a tiny metallic forei gn body on the prior radiographs. IMPRESSION: 1. Evaluation smooth limited by premature termination of the study prior to obtaining coronal images or postcontrast images. 2. Chronic nonunited avulsion fracture at the lateral base of the left fifth metatarsal. 3. Mild marrow edema along the bones of the lateral midfoot including the base of the fifth metatarsa l, the cuboid and anterior process of the calcaneus which are without loss of T1 fat signal or eviden t cortical erosion on the current study. There is also no evident sinus tract extending between the s kin ulceration in the bones and would favor reactive edema over early osteomyelitis. Reviewed, dictated and finalized at location B. IMPRESSION: 1. Evaluation smooth limited by premature termination of the study prior to obt aining coronal images or postcontrast images. 2. Chronic nonunited avulsion fracture at the lateral base of the left fifth me tatarsal. 3. Mild marrow edema along the bones of the lateral midfoot including the base of the fifth metatarsal, the cuboid and anterior process of the calcaneus which are without loss of T1 fat signal or evident cortical erosion on the current s tudy. There is also no evident sinus tract extending between the skin ulceratio n in the bones and would favor reactive edema over early osteomyelitis.
[2021-01-04 22:05] VITALS: BP 147/65; PULSE 96; RESP 20; TEMP 36.5; O2SAT 99
[2021-01-05] VITALS (7 sets, daily range): BP systolic 134–162; BP diastolic 58–80; PULSE 73–99; RESP 18–24; TEMP 36.2–37.8; O2SAT 95–99; BMI 27.8
--- NOTE | 2021-01-05 00:10 | ED.GENADULT ---
HPI - General Adult General Chief complaint: Recheck/Abnormal Lab/Rx Stated complaint: left foot infection Time Seen by Provider: 01/04/21 22:26 History of Present Illness HPI narrative: Patient is a 65-year-old gentleman who presents to the emergency department with chief complaint of left foot ulcer. Patient reports he is followed by the wound care clinic and also podiatry and has had a large ulceration developed on the lateral aspect of his left foot. Patient states that he has been on oral antibiotics and has had some debridement done by both his manufacturing business analyst and also in the wound care clinic. Patient states that the area has become more painful it is more swollen and red. The patient also notes there is been some purulent drainage and there is a malodorous smell coming from the wound. Patient was advised by the wound care clinic if his wound did not significantly improve he should come to the emergency department for admission Related Data Home Medications Medication Instructions Recorded Confirmed Caltrate 600 plus D 1,500 mg PO DAILY 12/22/20 01/03/21 Cosentyx Pen (2 Pens) 300 mg SUBCUT [id number] 12/22/20 01/03/21 Otezla 30 mg PO BID 12/22/20 01/03/21 Xarelto DVT-PE Treat 30d Start 15 ea PO DAILY 12/22/20 01/03/21 duloxetine 30 mg PO DAILY 12/22/20 01/03/21 duloxetine 60 mg PO DAILY 12/22/20 01/03/21 enalapril maleate 20 mg PO DAILY 12/22/20 01/03/21 furosemide 20 mg PO DAILY 12/22/20 01/03/21 glipizide 10 mg PO BID 12/22/20 01/03/21 leflunomide 20 mg PO DAILY 12/22/20 01/03/21 metformin 1,000 mg PO BID 12/22/20 01/03/21 senna 8.6 mg PO DAILY 12/22/20 01/03/21 sitagliptin 25 mg PO DAILY 12/22/20 01/03/21 tramadol 50 mg PO Q6-12H 12/22/20 01/03/21 Allergies Allergy/AdvReac Type Severity Reaction Status Date / Time Penicillins Allergy Unknown Verified 12/22/20 18:50 Review of Systems Review of Systems: Narrative: A 10 system review of systems was completed on the patient and is negative except for what is stated in the HPI. Nursing and ancillary documentation was reviewed. [facility] Past Medical History Medical History Current use of retirement anticoagulation Deep vein thrombosis of left femoral vein (~08/2019) Hypertension Psoriatic arthritis Rheumatoid arthritis Type 2 diabetes mellitus Surgical History Surgical History History of right knee surgery History of shoulder surgery No pertinent past surgical history Family History Family History Mother Lung cancer Father Hodgkin lymphoma Sibling Colon cancer Social History Social History Social History: Surrogate decision maker: Mona Burrows, . Code status: Full code. Smoking status: Never smoker Alcohol intake: never Substance use: never Additional living arrangements comments: Lives in [place] with his . 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 Gender identity (if verbalized by the patient): Male Spiritual care concerns: No Exam Narrative: Exam Narrative: GENERAL: Well-appearing, well-nourished, and in no acute distress. HEAD: Normocephalic, atraumatic. EYES: PERRLA and EOMI. ENT: Nares clear, no rhinorrhea or epistaxis. Mucous membranes moist. NECK: Supple. CHEST: Clear to auscultation. No respiratory distress. HEART: Regular rate and rhythm. No murmur heard. Normal peripheral pulses. ABDOMEN: Soft, nontender, nondistended, normal active bowel sounds. EXTREMITIES: Normal range of motion. No edema., There is a quarter sized necrotic ulceration on the lateral aspect of the left midfoot. There is surrounding erythema there is a slight purulent drainage from the affected wound and there is a very malodorous smell emanating from the wound S
[2021-01-05 00:13] LABS: Basophils Absolute Auto 0.1 K/mm3 (0.0-0.1); Basophils Percent Auto 0.5 % (0.2-1.2); Eosinophils Absolute Auto 0.1 K/mm3 (0-0.3); Eosinophils Percent Auto 0.5 % (0-4.4); Hemoglobin 9.2 g/dL (14.0-18.0); Immature Granulocyte Absolute 0.06 K/mm3 (0.00-0.031); Immature Granulocyte Percent A 0.5 % (0-0.5); Lymphocytes Absolute Auto 1.69 K/mm3 (0.9-3.2); Lymphocytes Percent Auto 12.9 % (18.3-44.2); Mean Corpuscular HGB Conc 31.7 g/dl (32-36); Mean Corpuscular Hemoglobin 29.4 pg (26-34); Mean Corpuscular Volume 92.7 fl (80-100); Mean Platelet Volume 9.7 fl (7.4-10.4); Monocytes Absolute Auto 1.3 K/mm3 (0.1-0.6); Monocytes Percent Auto 10.1 % (2.6-8.5); Neutrophils Absolute Auto 9.9 K/mm3 (1.3-6.7); Neutrophils Percent Auto 75.5 % (45.5-73.1); Platelet Count Result 244 k/mm3 (150-375); Red Blood Count 3.13 M/mm3 (4.6-6.20); White Blood Count 13.1 K/mm3 (4.5-10.0)
[2021-01-05] MEDS: SODIUM CHLORIDE 0.9% IV 1,000 ML 999 ML IV CONT (00:13)
[2021-01-05] MEDS: MORPHINE SULFATE (*CRX) 4 MG/ML INJ IV PUSH ×2 (00:13→19:46)
--- NOTE | 2021-01-05 00:19 | PC.NURSE ---
Pt presents to ED with complaints of swelling and pain to left foot that onset 01/02/2021. Pt states he was seen by pcp yesterday and prescribed antibiotics of which he has taken the daily dose, with no relief. Pt due to follow up with boring machine operator helper 01/06/2021 but states he could not wait due to the pain. Pt rates pain 3/10 at this time. Denies nvd, fever, chills, chest pain and sob. Pt noted to be alert and oriented x4. at bedside. Extremity elevated. Call button and personal items within reach. Pt advised to press call button for assistance.
[2021-01-05 00:22] LABS: INR 1.4; Prothrombin Time 17.8 Seconds (11.1-14.7)
[2021-01-05 00:23] LABS: Partial Thromboplastin Time 44.5 SECONDS (22.3-36.8)
[2021-01-05 00:25] LABS: Alanine Aminotransferase 12 U/L (4-50); Albumin Level 3.6 g/dL (3.5-5.1); Alkaline Phosphatase 55 U/L (38-126); Anion Gap 5 mmol/L (8-16); Aspartate Amino Transferase 20 U/L (17-59); Bilirubin,Total 0.5 mg/dL (0.2-1.3); Blood Urea Nitrogen 16 mg/dL (9-20); Calcium 8.6 mg/dL (8.4-10.2); Carbon Dioxide 29 mmol/L (22-30); Chloride 103 mmol/L (98-107); Estimated CRCL calculation 64 ml/min; Estimated Glomerular Filt Rate > 60; Glucose 88 mg/dL (75-110); Potassium 3.7 mmol/L (3.4-5.0); Sodium 137 mmol/L (137-145)
[2021-01-05 00:38] LABS: Troponin I < 0.012 ng/mL (0.000-0.034)
--- NOTE | 2021-01-05 00:49 | PC.NURSE ---
Pt resting on cart with at bedside. No complaints or concerns voiced at this time. Pt remains alert and oriented x4 with stable vitals. Call button and personal items within reach. Pt advised to press call button for assistance.
[2021-01-05 00:58] LABS: Lactic Acid Reflex 0.8 mmol/L (0.7-2.1)
--- NOTE | 2021-01-05 01:28 | PC.NURSE ---
SBAR completed and faxed to [facility] med/surg.
--- NOTE | 2021-01-05 01:47 | PC.NURSE ---
Imepenem cannot be found in ED. Pharmacy contacted and states to change the inventory count so that it can be restocked in pyxis and he will tube med to ED.
--- NOTE | 2021-01-05 02:09 | PC.NURSE ---
Attempted to call report to receiving nurse and states she will call back.
--- NOTE | 2021-01-05 02:23 | PC.NURSE ---
Report called to receiving nurseAnna. Benavides to send pt to floor.
--- NOTE | 2021-01-05 02:36 | PC.NURSE ---
Pt sent to floor alert, stable and in no obvious distress with RN.
--- NOTE | 2021-01-05 02:55 | PC.NURSE ---
This patient, Sheldon Burrows, was admitted to 3 [facility] Surg Room 302-01 @02:40. Patient/family oriented to hospital policies and general routines including ID bracelet, bed and alarms, visiting hours, pain management, procedures, bathroom and other care routines, personal items, smoking policy, room service/diet, and visiting hours. Information on how to activate the Rapid Response Team has been discussed. Patient/Family are encouraged to report perceived risks to care and to ask questions if they do not understand what they are told or what they should do.
[2021-01-05] MEDS: SODIUM CHLORIDE 0.9% IV 1,000 ML 125 ML IV CONT (06:18)
[2021-01-05 06:19] LABS: Estimated CRCL calculation 70 ml/min; Estimated Glomerular Filt Rate > 60
[2021-01-05 07:45] LABS: Glucose Point of Care 109 (65-105)
--- NOTE | 2021-01-05 09:41 | PC.NURSE ---
The of this patient called in and was given a general update on her . All questions answered per Mona ().
[2021-01-05 12:07] LABS: Glucose Point of Care 107 (65-105)
--- NOTE | 2021-01-05 15:58 | PM.IMHP ---
H&P: HPI History of Present Illness Date/Time: 01/05/21 15:58 Chief Complaint: Left foot wound Narrative: 65yo male with DM, HTN, RA on immunosuppressive agents and hx of DVT on Xarelto who presents to the ED with complaints of increasing drainage and strong odor from his left foot wound. Patient unsure when this began but it was first brought to the attention of the family when patient was hospitalized earlier this month. Patient was sent to the ED on 12/22/20 for evaluation for anemia. Hgb was 7.4 and he was transfused 1U PRBC. No evidence of acute blood loss. He did have iron deficiency but guaiac negative. During that visit, patient noted to have a dry left lateral foot wound. Old fracture of the left 5th metatarsal noted at that time. He was seen by surgery but no intervention required. He directed to the wound care clinica after discharge. has been doing the Betadine with dressing changes. On January 01, the noted increasing drainage from the left side of the foot with increased odor. Left foot also has become edematous with erythema to the top part of the foot. Patient was seen by his setter machine the following day. Some of the tissue was debrided. He was started on doxycycline. Patient was seen at the wound care clinic on January 03 that showed mild cellulitis and 1 to 2+ pitting edema. Does tunneling noted toward the plantar aspect of the foot. It was recommend the patient fill the prescription of the doxycycline which he had yet to do. Also patient should also wash the area with soap and water and apply dry gauze dressing. Over the next day patient had increasing pain in the left foot. There was more purulent drainage and strong odor. Because this reason he presented to the emergency room for evaluation. No fever or chills. No chest pain or palpitations. No shortness of breath or cough. No anosmia or dysgeusia. He has not received his COVID vaccine. No dysuria or hematuria. No abdominal pain or back pain. No nausea, vomiting or diarrhea. He has had a 42 lb weight loss but has been trying to lose weight. He has diabetes but checks his sugar once a day but normally runs less than 120. His last A1c was 5.4. No complaints of hypoglycemia. He denies any melena hematochezia. Last colonoscopy was about 15 years ago. He denies any retinopathy. He does have numbness in his feet. He also has Charcot foot bilaterally. In the ED, he was hemodynamically stable. [place] [address]. INR 1.4. Troponin was negative. Hemoglobin 9.2. Shows similar findings with exception at now there is possibly a subtle elevation of the periosteum along the proximal lateral aspect of the 5th metatarsal bone. Patient started on vancomycin and Primaxin. He is admitted for further care. Review of Systems Review of Systems: All systems reviewed & are unremarkable except as noted in HPI and below PMFSH Past Medical History Medical History Current use of terminal superintendent anticoagulation Deep vein thrombosis of left femoral vein (~08/2019) Hypertension Psoriatic arthritis Rheumatoid arthritis Type 2 diabetes mellitus Surgical History Surgical History History of right knee surgery History of shoulder surgery No pertinent past surgical history Family History Family History Mother Lung cancer Father Hodgkin lymphoma Sibling Colon cancer Social History Social History (Updated 01/05/21 @ 18:09 by Ricky Michelle MD) Social History: Patient denies tobacco, alcohol or drug use. Surrogate decision maker: Mona Burrows, . Code status: Full code. Smoking status: Never smoker Alcohol intake: never Substance use: never Additional living arrangements comments: Lives in [place] with his . Additional occupation/education comments: Retired fu
[2021-01-05 18:56] LABS: Glucose Point of Care 130 (65-105)
[2021-01-05 20:14] LABS: Add Urine Microscopic? YES; Appearance Urine Clear (Clear); Bilirubin Urine Negative (Negative); Blood Urine Negative (Negative); Color Urine Yellow (Yellow); Glucose Urine UA 1+ mg/dL (Negative); Ketones Urine Negative (Negative); Leukocyte Esterase Ur Negative LEU/UL (Negative); Mucus Urine Rare /lpf; Nitrate Urine Negative (Negative); Protein Urine Negative (Negative); RBC Urine 0-2 /hpf (0-2); Specific Grav Ur 1.008 (1.001-1.035); Squamous Epithelial Cell Urine Rare /hpf (Few); Urobilinogen Urine Negative mg/dL (<2.0); WBC Urine 0-3 /hpf
[2021-01-05 21:10] LABS: Glucose Point of Care 215 (65-105)
[2021-01-06 06:00] VITALS: BP 159/69; PULSE 87; RESP 20; TEMP 36.6; O2SAT 98
[2021-01-06 06:10] LABS: Hematocrit 25.9 % (42.0-52.0); Hemoglobin 8.3 g/dL (14.0-18.0); Mean Corpuscular Hemoglobin 29.3 pg (26-34); Mean Corpuscular Volume 91.5 fl (80-100); Mean Platelet Volume 9.8 fl (7.4-10.4); Platelet Count Result 217 k/mm3 (150-375); Red Blood Count 2.83 M/mm3 (4.6-6.20); Red Cell Distribution Width 13.8 % (11.5-14.5); White Blood Count 9.1 K/mm3 (4.5-10.0)
[2021-01-06 06:25] LABS: Anion Gap 4 mmol/L (8-16); Blood Urea Nitrogen 11 mg/dL (9-20); Calcium 7.8 mg/dL (8.4-10.2); Carbon Dioxide 28 mmol/L (22-30); Chloride 106 mmol/L (98-107); Estimated CRCL calculation 87 ml/min; Estimated Glomerular Filt Rate > 60; Glucose 178 mg/dL (75-110); Potassium 3.8 mmol/L (3.4-5.0); Sodium 138 mmol/L (137-145)
[2021-01-06 07:32] LABS: Glucose Point of Care 163 (65-105)
[2021-01-06 08:00] VITALS: PULSE 84; RESP 18; O2SAT 92
[2021-01-06 08:15] VITALS: PULSE 84; RESP 18; O2SAT 92
[2021-01-06] MEDS: metFORMIN HCL 500 MG TABLET 1000 MG PO ×2 (09:19→17:17)
[2021-01-06] MEDS: RIVAROXABAN 20 MG TABLET PO (09:19)
[2021-01-06] MEDS: FUROSEMIDE 20 MG TABLET PO (09:20)
[2021-01-06] MEDS: DULoxetine HCL 30 MG CAPSULE.DR PO (09:20)
[2021-01-06] MEDS: FERROUS GLUCONATE 324 MG TABLET PO (09:20)
[2021-01-06] MEDS: MORPHINE SULFATE (*CRX) 4 MG/ML INJ IV PUSH ×2 (09:24→19:40)
[2021-01-06] MEDS: ENALAPRIL MALEATE 10 MG TABLET 20 MG PO (10:21)
--- NOTE | 2021-01-06 11:08 | PM.CNGS ---
Assessment and Plan Assessment and plan (1) Diabetic foot ulcer: Qualifiers: Diabetes mellitus type: due to underlying condition Diabetic foot ulcer location: midfoot Laterality: left Non-pressure ulcer stage: unspecified non-pressure ulcer stage Qualified Code(s): E08.621 - Diabetes mellitus due to underlying condition with foot ulcer; L97.429 - Non-pressure chronic ulcer of left heel and midfoot with unspecified severity Code(s): E11.621 - Type 2 diabetes mellitus with foot ulcer; L97.509 - Non-pressure chronic ulcer of other part of unspecified foot with unspecified severity Status: Acute Assessment and Plan: MRI to eval for osteo, cont abx, will cont local wound care c enzymatic debridement (2) Type 2 diabetes mellitus: Qualifiers: Diabetes mellitus continuous churn buttermaker insulin use: without continuous churn buttermaker use Diabetes mellitus complication status: without complication Qualified Code(s): E11.9 - Type 2 diabetes mellitus without complications Code(s): E11.9 - Type 2 diabetes mellitus without complications Status: Acute Assessment and Plan: tight bs control History of Present Illness Consult details Consult date: 01/06/21 Reason for consult: wound care Requesting physician: Ricky Michelle MD Narrative: Pt is a 65 y/o M presenting c worsening pain, swelling of L foot. Pt reports he had a callous in his L lateral foot that was debrided by his boatbuilder apprentice wood on Saturday. Pt reports the following day he has worsening swelling and redness in the area. Pt seen in wound care clinic on Saturday and given abx and instructions for wound care. Pt reports compliance but cont worsening of the area, swelling and pain. Pt admitted yesterday from ED and started on IV abx. Of note, pt reports significant improvement of swelling, erythema since admit. Review of Systems Constitutional: Constitutional: Denies anorexia, Denies body ache(s), Denies chills, Reports fatigue, Denies fever(s), Denies headache(s), Denies lethargy, Denies malaise, Denies poor appetite, Reports weakness, Denies weight gain and Denies weight loss Eyes: Eyes: Reports no additional eye complaints ENT: Reports system reviewed and no additional complaints, except as documented Cardiovascular: Cardiovascular: Reports no additional cardiovascular complaints Respiratory: Respiratory: Reports no additional respiratory complaints Gastrointestinal: Gastrointestinal: Reports no additional gastrointestinal complaints Genitourinary: Genitourinary: Reports no additional male genitourinary complaints Musculoskeletal: Musculoskeletal: Reports as per HPI Integumentary/Breasts: Skin/Breast: Reports as per HPI Neurologic: Reports system reviewed and no additional complaints, except as documented Psychiatric: Psychiatric: Reports no additional psychiatric complaints Endocrine: Endocrine: Reports no additional endocrine complaints Hematologic/Lymphatic: Hematologic/Lymphatic: Reports no additional hematologic/lymphatic complaints Allergic/Immunologic: Allergic/Immunologic: Reports no additional allergic/immunologic complaints [facility] Past Medical History Medical History Current use of continuous churn buttermaker anticoagulation Deep vein thrombosis of left femoral vein (~08/2019) Hypertension Psoriatic arthritis Rheumatoid arthritis Type 2 diabetes mellitus Surgical History Surgical History History of right knee surgery History of shoulder surgery No pertinent past surgical history Family History Family History Mother Lung cancer Father Hodgkin lymphoma Sibling Colon cancer Social History Social History Social History: Patient denies tobacco, alcohol or drug use. Surrogate decision maker: Mona Burrows, . Code status: Ful
[2021-01-06 11:42] LABS: Glucose Point of Care 251 (65-105)
[2021-01-06 11:49] LABS: Vancomycin Trough 12.9 ug/mL (10.0-20.0)
[2021-01-06] MEDS: INSULIN ASPART (*BKC) 100 UNITS/ML SUB-Q ×2 (12:01→17:16)
--- NOTE | 2021-01-06 13:57 | PM.IMPN ---
Progress Note: A&P Assessment and Plan (1) Cellulitis: Code(s): L03.90 - Cellulitis, unspecified Status: Acute Assessment and Plan: Patient with surrounding cellulitis and edema to the left foot. Patient states symptoms and pain improved with elevation and abx. Doubt DVT given that he is on Xarelto. Continue with IV vancomycin and Primaxin. Preliminary blood cultures with no growth to date. Monitor final cultures. (2) Diabetic foot ulcer: Qualifiers: Diabetes mellitus type: due to underlying condition Diabetic foot ulcer location: midfoot Laterality: left Non-pressure ulcer stage: unspecified non-pressure ulcer stage Qualified Code(s): E08.621 - Diabetes mellitus due to underlying condition with foot ulcer; L97.429 - Non-pressure chronic ulcer of left heel and midfoot with unspecified severity Code(s): E11.621 - Type 2 diabetes mellitus with foot ulcer; L97.509 - Non-pressure chronic ulcer of other part of unspecified foot with unspecified severity Status: Acute Assessment and Plan: Patient has had this chronic left lateral foot ulcer that has now become infected. Will continue IV abx as mentioned above. MRI of the left foot to determine if osteomyelitis is present has been taken. Awaiting results. Appreciate general surgery consultation. Continue local wound care with enzymatic debridement. (3) Metatarsal bone fracture: Qualifiers: Encounter type: initial encounter Fracture alignment: nondisplaced Fracture type: closed Laterality: left Metatarsal bone: fifth Qualified Code(s): S92.355A - Nondisplaced fracture of fifth metatarsal bone, left foot, initial encounter for closed fracture Code(s): S92.309A - Fracture of unspecified metatarsal bone(s), unspecified foot, initial encounter for closed fracture Status: Acute Assessment and Plan: Patient with chronic left foot 5th metatarsal fracture. There may be some bony changes as mentioned above. MRI pending. Pain is well controlled. (4) Type 2 diabetes mellitus: Qualifiers: Diabetes mellitus complication status: without complication Diabetes mellitus route deliverer insulin use: without route deliverer use Qualified Code(s): E11.9 - Type 2 diabetes mellitus without complications Code(s): E11.9 - Type 2 diabetes mellitus without complications Status: Acute Assessment and Plan: A1c 5.5 last admission earlier this month. Patient is well controlled at home and may be too tightly controlled. Will continue sitagliptin and metformin but continue to hold glipizide at this time. Continue Accu-Cheks, sliding scale insulin, and hypoglycemic protocol. (5) Current use of nursing home anticoagulation: Code(s): Z79.01 - senior living (current) use of anticoagulants Status: Acute Assessment and Plan: Patient with hx of DVT. Has been maintained of Xarelto which we will continue (6) Rheumatoid arthritis: Code(s): M06.9 - Rheumatoid arthritis, unspecified Status: Acute Assessment and Plan: Stable. Hold Cosentyx and leflunomide with ongoing infection. (7) Normocytic anemia: Code(s): D64.9 - Anemia, unspecified Status: Acute Assessment and Plan: Hemoglobin 9.2 on admission. Improved from prior labs at last admission, at which time he required 1 unit blood transfusion. Hemoglobin remaining stable today. Vital signs are stable. No evidence of blood loss. Monitor H&H. (8) Hypertension: Qualifiers: Hypertension type: essential hypertension Qualified Code(s): I10 - Essential (primary) hypertension Code(s): I10 - Essential (primary) hypertension Status: Acute Assessment and Plan: Blood pressure stable. Slightly elevated above target in the 160s systolic today. Last BP 159/69. Continue enalapril. Monitor BP trends. (9) DVT prophylaxis: Code(s): Z29.9 - Encounter for
[2021-01-06 14:00] VITALS: BP 157/56; PULSE 98; RESP 16; TEMP 36.7; O2SAT 98
[2021-01-06 17:12] LABS: Glucose Point of Care 264 (65-105)
[2021-01-06] MEDS: SILVERGEL (ELTA) 45 ML 1 APPLIC TOPICAL (17:19)
[2021-01-06 20:56] LABS: Glucose Point of Care 188 (65-105)
[2021-01-06 22:00] VITALS: BP 174/74; PULSE 103; RESP 16; TEMP 37.7; O2SAT 96
[2021-01-07 06:00] VITALS: BP 137/58; PULSE 91; RESP 16; TEMP 36.6; O2SAT 100
[2021-01-07 06:34] LABS: Anion Gap 3 mmol/L (8-16); Blood Urea Nitrogen 12 mg/dL (9-20); Calcium 7.9 mg/dL (8.4-10.2); Carbon Dioxide 30 mmol/L (22-30); Chloride 101 mmol/L (98-107); Estimated CRCL calculation 70 ml/min; Estimated Glomerular Filt Rate > 60; Glucose 210 mg/dL (75-110); Potassium 3.6 mmol/L (3.4-5.0); Sodium 134 mmol/L (137-145)
[2021-01-07 06:35] LABS: Hematocrit 24.8 % (42.0-52.0); Hemoglobin 7.8 g/dL (14.0-18.0); Mean Corpuscular HGB Conc 31.5 g/dl (32-36); Mean Corpuscular Hemoglobin 28.3 pg (26-34); Mean Corpuscular Volume 89.9 fl (80-100); Mean Platelet Volume 9.7 fl (7.4-10.4); Platelet Count Result 218 k/mm3 (150-375); Red Blood Count 2.76 M/mm3 (4.6-6.20); White Blood Count 11.6 K/mm3 (4.5-10.0)
[2021-01-07 07:53] LABS: Glucose Point of Care 195 (65-105)
[2021-01-07 08:00] VITALS: PULSE 91; RESP 16; O2SAT 100
[2021-01-07] MEDS: SILVERGEL (ELTA) 45 ML 1 APPLIC TOPICAL (08:24)
[2021-01-07] MEDS: ENALAPRIL MALEATE 10 MG TABLET 20 MG PO (08:24)
[2021-01-07] MEDS: metFORMIN HCL 500 MG TABLET 1000 MG PO (08:24)
[2021-01-07] MEDS: DULoxetine HCL 30 MG CAPSULE.DR PO (08:25)
[2021-01-07] MEDS: FUROSEMIDE 20 MG TABLET PO (08:25)
[2021-01-07] MEDS: FERROUS GLUCONATE 324 MG TABLET PO (08:25)
[2021-01-07] MEDS: RIVAROXABAN 20 MG TABLET PO (08:26)
--- NOTE | 2021-01-07 09:43 | PM.PNGS ---
Progress Note: A&P Assessment and Plan (1) Diabetic foot ulcer: Qualifiers: Diabetes mellitus type: due to underlying condition Diabetic foot ulcer location: midfoot Laterality: left Non-pressure ulcer stage: unspecified non-pressure ulcer stage Qualified Code(s): E08.621 - Diabetes mellitus due to underlying condition with foot ulcer; L97.429 - Non-pressure chronic ulcer of left heel and midfoot with unspecified severity Code(s): E11.621 - Type 2 diabetes mellitus with foot ulcer; L97.509 - Non-pressure chronic ulcer of other part of unspecified foot with unspecified severity Status: Acute Assessment and Plan: cont local wound care, improved c abx, no evidence of osteo on imaging, ok to dc c local wound care and abx, pt to f/u podiatry on Saturday (2) Type 2 diabetes mellitus: Qualifiers: Diabetes mellitus adjunct faculty for medical terminology insulin use: without adjunct faculty for medical terminology use Diabetes mellitus complication status: without complication Qualified Code(s): E11.9 - Type 2 diabetes mellitus without complications Code(s): E11.9 - Type 2 diabetes mellitus without complications Status: Acute Assessment and Plan: stable, cont tight control Subjective Subjective Date/Time Seen: 01/07/21 09:43 feels good, no acute issues, reports cont decreasing swelling and pain in foot Review of Systems Review of Systems: All systems reviewed & are unremarkable except as noted in HPI and below Exam Const: General: cooperative, comfortable and no acute distress Orientation/consciousness: patient oriented x3 Resp: Effort & Inspection: normal respiratory effort Auscultation: clear to auscultation bilaterally Cardio: Rate: regular rate Rhythm: regular rhythm GI: Inspection: normal to inspection GI Palp: Yes Soft to palpation and No Tenderness to palpation present (GI) Extrem: Other: L foot - drsg C/D/I, decreased swelling, erythema Objective Data Vital Signs Vital Signs: Vital Signs - 24 hr 01/06/21 14:00 01/06/21 22:00 01/07/21 06:00 Temperature 36.7 C 37.7 C H 36.6 C Pulse Rate 98 103 H 91 Respiratory Rate 16 16 16 Blood Pressure 157/56 H 174/74 H 137/58 L Pulse Oximetry 98 96 100 Intake/Output Intake/Output: Intake & Output 01/04/21 01/05/21 01/06/21 01/07/21 23:59 23:59 23:59 23:59 Intake Total 3230 3230 600 Output Total 0 400 Balance 3230 2830 600 Meds/Results Medications: Active Medications Generic Name Dose Route Start Last Admin Trade Name Freq PRN Reason Stop Dose Admin Hydrocodone Bitart/Acetaminophen 1 tab 01/05/21 18:13 Hydrocodone/Acetaminophen (*Crx) 5-325 Mg Tablet PO Q6H PRN pain Calcium Carbonate 500 mg 01/06/21 09:00 01/07/21 08:25 Calcium/Vitamin D 500 Mg Tablet PO 500 mg BID MAG Administration Dextrose 12.5 gm 01/05/21 18:17 Dextrose 50% 25 Gm/50 Ml Syringe IV PUSH PRN PRN Hypoglycemia Protocol Duloxetine HCl 30 mg 01/06/21 09:00 01/07/21 08:25 Duloxetine Hcl 30 Mg Capsule.Dr PO 30 mg DAILY MAG Administration Enalapril Maleate 20 mg 01/06/21 09:00 01/07/21 08:24 Enalapril Maleate 10 Mg Tablet PO 20 mg DAILY MAG Administration Ferrous Gluconate 324 mg 01/06/21 09:00 01/07/21 08:25 Ferrous Gluconate 324 Mg Tablet PO 324 mg DAILY MAG Administration Furosemide 20 mg 01/06/21 09:00 01/07/21 08:25 Furosemide 20 Mg Tablet PO 20 mg DAILY MAG Administration Glucagon 1 mg 01/05/21 18:17 Glucagon For Inj 1 Mg Vial IM PRN PRN Hypoglycemia Protocol Glucose 15 gm 01/05/21 18:17 Glucose Oral Gel 15 Gm Of Glucse In 37.5 Gm Tube PO PRN PRN Hypoglycemia Protocol Imipenem/Cilastatin Sodium 500 mg in 100 mls @ 300 mls/hr 01/05/21 07:00 01/07/21 05:17 Primaxin 500 Mg/D5w 100 Ml IVPB 300 mls/hr Q6HR MAG Administration Dextrose 1,000 mls @ 100 mls/hr 01/05/21 18:17 Dextrose 5% 1,000 Ml IVPB PRN PRN Hypoglycem
--- NOTE | 2021-01-07 11:30 | PM.DS ---
DS: Admitting Diagnosis Admitting Diagnosis Admitting Diagnosis: Left foot cellulitis DS: Discharge Diagnosis Discharge Diagnosis (1) Cellulitis: Code(s): L03.90 - Cellulitis, unspecified Status: Acute Assessment and Plan: Patient with surrounding cellulitis and edema to the left foot. WBC was 13K. He had low grade fever. He was admitted and started on IV vancomycin and Primaxin. BCx NGTD. Patient states his symptoms are much better. The edema is improved with elevation and abx. Doubt DVT given that he is on Xarelto. WBC better overall. He states he feels much better. General surgery felt patient could be discharged home with oral abx and for him to follow up with his public service administrator in 2 days. Patient instructed to resume his Doxycycline. (2) Diabetic foot ulcer: Qualifiers: Diabetes mellitus type: due to underlying condition Diabetic foot ulcer location: midfoot Laterality: left Non-pressure ulcer stage: unspecified non-pressure ulcer stage Qualified Code(s): E08.621 - Diabetes mellitus due to underlying condition with foot ulcer; L97.429 - Non-pressure chronic ulcer of left heel and midfoot with unspecified severity Code(s): E11.621 - Type 2 diabetes mellitus with foot ulcer; L97.509 - Non-pressure chronic ulcer of other part of unspecified foot with unspecified severity Status: Acute Assessment and Plan: Patient has had this chronic left lateral foot ulcer that has now become infected. He was treated with IV abx as mentioned above. MRI of the left foot was more consistent with edema and not osteomyelitis. General surgery was consulted and did not feel debridement was necessary. We continued local wound care with enzymatic debridement. (3) Metatarsal bone fracture: Qualifiers: Encounter type: initial encounter Fracture alignment: nondisplaced Fracture type: closed Laterality: left Metatarsal bone: fifth Qualified Code(s): S92.355A - Nondisplaced fracture of fifth metatarsal bone, left foot, initial encounter for closed fracture Code(s): S92.309A - Fracture of unspecified metatarsal bone(s), unspecified foot, initial encounter for closed fracture Status: Acute Assessment and Plan: Patient with chronic left foot 5th metatarsal fracture. There may be some bony changes as mentioned above. Pain is well controlled. (4) Type 2 diabetes mellitus: Qualifiers: Diabetes mellitus complication status: without complication Diabetes mellitus predatory animal exterminator insulin use: without predatory animal exterminator use Qualified Code(s): E11.9 - Type 2 diabetes mellitus without complications Code(s): E11.9 - Type 2 diabetes mellitus without complications Status: Acute Assessment and Plan: A1c 5.5 last admission earlier this month. Patient is well controlled at home and may be too tightly controlled. We continued sitagliptin and metformin but held the glipizide at this time. Monitored with Accu-Cheks, sliding scale insulin, and hypoglycemic protocol. Resume at discharge. He has not been having low glucose values at home. (5) Current use of predatory animal exterminator anticoagulation: Code(s): Z79.01 - intermission coordinator (current) use of anticoagulants Status: Acute Assessment and Plan: Patient with hx of DVT. Has been maintained of Xarelto which was continued here. (6) Rheumatoid arthritis: Code(s): M06.9 - Rheumatoid arthritis, unspecified Status: Acute Assessment and Plan: Stable. Resume Cosentyx and leflunomide when okay with his doctor. (7) Normocytic anemia: Code(s): D64.9 - Anemia, unspecified Status: Acute Assessment and Plan: Hemoglobin 9.2 on admission. Improved from prior labs at last admission at which time he required 1 unit blood transfusion. Hemoglobin did drop to 7.8 but no evidence of blood loss. Repeat HH as outpatient (8) Hypertension: Qualifiers: Hypert
[2021-01-07 11:44] LABS: Glucose Point of Care 248 (65-105)
--- NOTE | 2021-01-13 08:55 | PC.NURSE ---
Blood cx are negative. Dr. Viviana aguilar.
== END 2021-01-07 13:00 | disposition home or self-care (01) | DRG 638 ==
LOC: ANHED 01-05 00:13 → ANH3MEDSUR 01-05 01:31
PROVIDERS: Physician Assistant; Admitting Provider Family Medicine; Emergency Provider Emergency Medicine; PCP Internal Medicine; Visit Provider Internal Medicine
DX: E11.621 Type 2 diabetes mellitus with foot ulcer (principal); L97.429 Non-pressure chronic ulcer of left heel and midfoot with unspecified severity; L03.116 Cellulitis of left lower limb; M84.475A Pathological fracture, left foot, initial encounter for fracture; Z86.718 Personal history of other venous thrombosis and embolism; I10 Essential (primary) hypertension; M06.9 Rheumatoid arthritis, unspecified; Z79.01 Long term (current) use of anticoagulants
CPT/HCPCS: 36415; 73630; 73720; 80048; 80053; 80202; 81001; 82565; 82948; 83605; 84484; 85025; 85027; 85610; 85730; 87040; 96365; 96375; 99212; 99285; A9270; G0463; J0743; J1815; J2270; J3370; J7030

== ENCOUNTER 2024-10-09 11:00 | Outpatient (RCR) | payer MEDICARE, SELFPAY ==
--- NOTE | 2024-08-03 11:34 | OPREHPOC ---
Outpatient Therapy Plan of Care This is a Multidisciplinary Plan of Care that may contain components documented by all disciplines (PT, OT, and ST.) PT Problem 1 PT Problem #1 Knowledge Deficit PT Goal 1 Goal / Goal Update *indep with HEP * indep with prosthesis care/use Target Visit 10 PT Problem 2 PT Problem #2 Impaired Strength PT Goal 1 Goal / Goal Update increase strength of both LE's, to improve mobility and transfer skills: 1* sit/stand with use of 1 UE on chair arm 2* pt perform R and L side lying and prone exercises x 20 reps Target Visit 10 PT Problem 3 PT Problem #3 Impaired Gait PT Goal 1 Goal / Goal Update improve gait and balance skills with prosthesis, to increase indep with mobility and safety: 1* pt don/doff prosthesis indep 2* 5 reps sit/stand time of 15 seconds 3* static standing time of 2 minutes, without UE use and with reaching of R/L UEs 4* up/down 12 steps with one hand railing, indep 5* 6 minute walking test distance of 700' with assistive device 6* use of cane for in home walking, indep Target Visit 10
--- NOTE | 2024-08-03 11:35 | PTOPEVAL1 ---
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 He has been using a motorized scooter for mobility and just received his prosthesis. He is very motivated and anxious to get walking and active again. His goal is to go to family's home for Thanksgiving and be able to do their stairs. was present during evaluation and very supportive to pt. LE functional scale rating of 63% limitation in activity level. With the evaluation: due to arthritis, he has decreased ROM of both knees and hips; to dept in motorized scooter; required assist with donning and doffing prosthesis; sit/stand with both UE's used' 5 reps sit/stand time of 20 seconds with wide base of support and decreased wt on L LE; maximum walking distance of 300' with wheeled walker; able to perform 12 steps with CGA and bilateral hand rails; static standing time without UE support of 60 seconds. Skilled PT services are indicated to increase hip strength, improve transfer, gait and balance skills with his new prosthesis, education for gait training, HEP and prosthesis. Plan of Care Interventions Gait Training,Neuro Re-education,Patient/Caregiver Education,Therapeutic Activities,Therapeutic Exercise,Other Other Interventions prosthetic PT Services Indicated Yes Treatment Frequency and 2x/wk for 10 visits Duration These treatments will address the objective and functional deficits as defined above. The patient will be advanced safely and appropriately in order for the patient to progress towards his/her prior level of function. Additional exercises will be introduced and as well as a comprehensive home exercise program upon discharge, if needed, ?to ensure carryover of functional gains achieved in the clinic. This treatment plan has been reviewed and agreement upon by the patient.
--- NOTE | 2024-09-02 10:10 | OPREHPOC ---
Outpatient Therapy Plan of Care This is a Multidisciplinary Plan of Care that may contain components documented by all disciplines (PT, OT, and ST.) PT Problem 1 PT Problem #1 Knowledge Deficit PT Goal 1 Goal / Goal Update *indep with HEP * indep with prosthesis care/use Target Visit 10 Progress Met PT Goal 2 Goal / Goal Update 09-02-24: progress goals met continue towards goals to progress HEP and education Target Visit 18 PT Problem 2 PT Problem #2 Impaired Strength PT Goal 1 Goal / Goal Update increase strength of both LE's, to improve mobility and transfer skills: 1* sit/stand with use of 1 UE on chair arm 2* pt perform R and L side lying and prone exercises x 20 reps Target Visit 10 Progress Partially Met PT Goal 2 Goal / Goal Update 09-02-24: progress goal 2 met; partially met #1- is able to transfer stand to sit without use of UEs NEW GOALS: 1* sit to stand with use of 1 UE Target Visit 18 PT Problem 3 PT Problem #3 Impaired Gait PT Goal 1 Goal / Goal Update improve gait and balance skills with prosthesis, to increase indep with mobility and safety: 1* pt don/doff prosthesis indep 2* 5 reps sit/stand time of 15 seconds 3* static standing time of 2 minutes, without UE use and with reaching of R/L UEs 4* up/down 12 steps with one hand railing, indep 5* 6 minute walking test distance of 700' with assistive device 6* use of cane for in home walking, indep Target Visit 10 Progress Met PT Goal 2 Goal / Goal Update 09-02-24: progress goals met NEW GOALS: 1* Agustin balance score of 54/56 2* pt ambulate with cane, outside on uneven surface/grass 200' 3* 6 minute walk test with cane, 900' 4* pt perform golf swing 5 reps without loss of balance. 5* pt report wearing time of L prosthesis of 8 hours.
--- NOTE | 2024-09-02 10:10 | PTOPPROG ---
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 He is very motivated, doing his HEP, and worked hard during therapy sessions. He has made excellent progress in all areas: indep donning/doffing prosthesis; increase prosthetic wearing tolerance to 5 hours; good skin integrity of L LE; increase strength; improved gait from 300' with wheeled walker to 6 minute walking test distance with cane of 900'; he is walking short distances without device; Agustin balance score of 43/56--difficulty with small base of support and single leg standing activities; on stairs uses one hand railing, indep;Self assessment LE functional scale rating from 63 to 36% limitation in activity level. The goals were were achieved, except sit to stand - requires both UE use. Continue PT to further increase gait, balance and mobility skills. Plan of Care Interventions Gait Training,Neuro Re-education,Patient/Caregiver Education,Therapeutic Activities,Therapeutic Exercise Other Interventions prosthetic PT Services Indicated Yes Treatment Frequency and 2x/wk for 8 visits Duration These treatments will address the objective and functional deficits as defined above. The patient will be advanced safely and appropriately in order for the patient to progress towards his/her prior level of function. Additional exercises will be introduced and as well as a comprehensive home exercise program upon discharge, if needed, ?to ensure carryover of functional gains achieved in the clinic. This treatment plan has been reviewed and agreement upon by the patient.
--- NOTE | 2024-09-24 11:48 | PCPTNOTE ---
Called and canceled , sick. AKS
--- NOTE | 2024-10-07 08:48 | PCPTNOTE ---
Insurance issue, canceled this date. AKS
--- NOTE | 2024-10-09 11:55 | PTOPDC ---
Assessment and note entered by Alaina Carmona, PT Assessment Status Discharge ICD-10 Condition Codes (PT) Difficulty Walking R26.2,Abnormalities of gait and mobility R26.9,Weakness R53.1 Other ICD-10 Condition Codes ( S88.19A- amputation L LE PT) Onset March 2024 Subjective Information most of the time walk without the cane, only use it if having a bad day or feel off; wearing 5 ply socks and wearing his leg about 8-11 hours/day; have not had any falls; have been getting around and out in the community; there is not anything he is not able to do around the house or with going out; Reported Pain Level Pain Score 0: Self Report Assessment PT Clinical Summary Sheldon has received a total of 15 PT sessions. He called/canceled 2 appointments due to illness. Compared to the last report: wearing time of prosthesis from 4-5 hours to 8-11 hours; is walking without device with PRN cane use; self assessment LE functional scale rating from 36 to 21% limitation in activity level; increase with mobility and balance: sit to stand with 1 UE use, Agustin balance score from 43 to 47/56; 6 minute walking test distance from 900' with cane to 1220' without device. He has returned to his usual home and community activities. The goals were achieved, except Agustin balance score Discharge PT services. Plan of Care PT Services Indicated No
== END 2024-10-09 14:04 | disposition home or self-care (01) ==
LOC: ANHPT 11:00
PROVIDERS: PCP Family Medicine; Visit Provider Family Medicine
DX: R26.9 Unspecified abnormalities of gait and mobility (principal); S88.119A Complete traumatic amputation at level between knee and ankle, unspecified lower leg, initial encounter; E11.9 Type 2 diabetes mellitus without complications; I10 Essential (primary) hypertension; Z79.01 Long term (current) use of anticoagulants; Z86.718 Personal history of other venous thrombosis and embolism; M06.9 Rheumatoid arthritis, unspecified
CPT/HCPCS: 97110; 97112; 97116; 97140; 97161; 97530